=== PATIENT | female | born 1940 | race Caucasian/White ===

== ENCOUNTER 2021-11-16 17:10 | Inpatient (IN) | payer OTHER, MEDICARE ==
[2021-11-16] MEDS ORDERED: Boostrix 0.5 ML (Tdap) VIAL ONE (17:22)
[2021-11-16 17:36] LABS: #Eosinphils 0.1 thou/uL (0.0-0.7); #Lymphocytes 1.3 thou/uL (1.20-3.40); #Monocytes 0.7 thou/uL (0.11-0.59); #Neutrophils 9.4 thou/uL (1.40-6.50); %Basophils 0.1 % (0.0-1.0); %Eosinophils 0.8 % (0.0-10.0); %Monocytes 6.4 % (0.0-10.0); %Neutrophils 81.7 % (42.0-75.0); Hemoglobin 10.8 g/dL (12.0-16.0); Mean Corpuscular Hemoglobin 31.7 pg (27.0-31.0); Mean Corpuscular Volume 93.4 fL (78.0-98.0); Mean Platelet Volume 6.9 fL (7.4-10.4); Platelet Count 247 thou/uL (130-400); RBC Distribution Width 12.5 % (11.5-14.5); Red Blood Cell (RBC) Count 3.41 mill/uL (4.20-5.40); White Blood Cell (WBC) Count 11.4 thou/uL (4.8-10.8)
[2021-11-16 17:47] LABS: INR-International Normal Ratio 1.1
[2021-11-16 17:56] LABS: ALT (SGPT) 12 U/L (8-55); AST (SGOT) 19 U/L (5-34); Albumin 3.5 g/dL (3.4-4.8); Alkaline Phosphatase 68 U/L (40-110); Anion Gap 11 mmol/L (10-20); BUN (Urea Nitrogen) 13 mg/dL (9.8-20.1); Bilirubin, Total 0.7 mg/dL (0.2-1.2); Calc. Creatinine Clearance 0 mL/min (70-130); Calcium 8.3 mg/dL (7.8-10.44); Carbon Dioxide 23 mmol/L (23-31); Chloride 107 mmol/L (98-107); Globulin 2.8 g/dL (2.4-3.5); Glucose 134 mg/dL (83-110); Potassium 4.2 mmol/L (3.5-5.1); Protein, Total 6.3 g/dL (5.8-8.1); Sodium 137 mmol/L (136-145)
[2021-11-16] MEDS ORDERED: TETANUS AND DIPHTHERIA TOX/PF 0.5 ML DISP.SYRIN IM ONE (20:39)
[2021-11-16] MEDS ORDERED: Dextrose 5% in Water 1,000 ML IV PRN (20:39)
[2021-11-16] MEDS ORDERED: traMADol HCl 50 MG TAB PO PRN (20:39)
[2021-11-16] MEDS ORDERED: hydrALAZINE 20 MG/ML VIAL SLOW IVP PRN (20:39)
[2021-11-16] MEDS ORDERED: Ondansetron ODT 4 MG TAB PO PRN (20:39)
[2021-11-16] MEDS ORDERED: Ondansetron PF 4 MG/2 ML Vial IVP PRN (20:39)
[2021-11-16] MEDS ORDERED: Morphine 2 MG/ML VIAL SLOW IVP PRN (20:39)
[2021-11-16] MEDS ORDERED: Dextrose 50% Abboject 50 ML SYRINGE SLOW IVP PRN (20:39)
[2021-11-16] MEDS ORDERED: Cyclobenzaprine 10 MG TAB PO PRN (20:43)
[2021-11-16] MEDS ORDERED: Sodium Chloride 0.9% 1,000 ML IV SCH (20:45)
[2021-11-16] MEDS: Ketorolac Tromethamine 30 MG/ML VIAL IVP SCH (22:04)
[2021-11-16] MEDS: Senokot S 8.6-50 MG TAB PO SCH (22:11)
[2021-11-16] MEDS: Famotidine 20 MG TAB PO SCH (22:11)
[2021-11-16 22:44] VITALS: BMI 22.3
[2021-11-16] MEDS: traMADol HCl 50 MG TAB PO SCH (23:48)
[2021-11-16] MEDS: Acetaminophen 500 MG TAB PO SCH (23:48)
[2021-11-16 23:50] LABS: SARS-CoV-2 NAA Rapid Test Not Detected (NotDetected)
[2021-11-17] MEDS: Ketorolac Tromethamine 30 MG/ML VIAL IVP SCH ×4 (03:27→20:09)
[2021-11-17] MEDS: traMADol HCl 50 MG TAB PO SCH ×4 (05:38→23:47)
[2021-11-17] MEDS: Acetaminophen 500 MG TAB PO SCH ×4 (05:39→23:47)
[2021-11-17] MEDS: Levothyroxine Sodium 50 MCG TAB PO SCH (05:40)
[2021-11-17 07:01] LABS: #Eosinphils 0.1 thou/uL (0.0-0.7); #Lymphocytes 0.9 thou/uL (1.20-3.40); #Monocytes 0.6 thou/uL (0.11-0.59); #Neutrophils 4.1 thou/uL (1.40-6.50); %Basophils 0.5 % (0.0-1.0); %Eosinophils 1.8 % (0.0-10.0); %Lymphocytes 16.1 % (21.0-51.0); %Monocytes 10.5 % (0.0-10.0); %Neutrophils 71.1 % (42.0-75.0); Hemoglobin 9.2 g/dL (12.0-16.0); Mean Corpuscular HGB CONC 34.5 g/dL (32.0-36.0); Mean Corpuscular Hemoglobin 32.5 pg (27.0-31.0); Mean Corpuscular Volume 94.1 fL (78.0-98.0); Mean Platelet Volume 7.5 fL (7.4-10.4); Platelet Count 200 thou/uL (130-400); RBC Distribution Width 12.5 % (11.5-14.5); Red Blood Cell (RBC) Count 2.84 mill/uL (4.20-5.40); White Blood Cell (WBC) Count 5.7 thou/uL (4.8-10.8)
[2021-11-17 07:21] LABS: Phosphorus 2.9 mg/dL (2.3-4.7)
[2021-11-17 07:23] LABS: Anion Gap 11 mmol/L (10-20); BUN (Urea Nitrogen) 15 mg/dL (9.8-20.1); Calc. Creatinine Clearance 43 mL/min (70-130); Carbon Dioxide 23 mmol/L (23-31); Chloride 108 mmol/L (98-107); Glucose 122 mg/dL (83-110); Potassium 4.5 mmol/L (3.5-5.1); Sodium 137 mmol/L (136-145)
[2021-11-17] MEDS: Senokot S 8.6-50 MG TAB PO SCH ×2 (07:33→20:08)
[2021-11-17] MEDS: Polyethylene Glycol 3350 17 GM Packet PO SCH (07:33)
[2021-11-17] MEDS: Famotidine 20 MG TAB PO SCH ×2 (07:33→20:07)
[2021-11-17] MEDS ORDERED: Sodium Phosphate 30 MMOL in Sodium Chloride 0.9% 250 ML 250 ML IVPB SCH (07:45)
[2021-11-17] MEDS ORDERED: CEFAZOLIN 2 GM in Sodium Chloride 0.9% 100 ML IVPB SCH (08:00)
[2021-11-17] MEDS ORDERED: fentaNYL Citrate/PF 100 MCG/2 ML SYRINGE ONE (13:34)
[2021-11-17] MEDS ORDERED: Phenylephrine 10 MG/ML VIAL ONE (13:35)
[2021-11-17] MEDS ORDERED: CEFAZOLIN 2 GM VIAL ONE (13:38)
[2021-11-17] MEDS ORDERED: Sodium Chloride 0.9% 100 ML ONE (13:38)
[2021-11-17] MEDS ORDERED: PROPOFOL 200 MG/20 ML VIAL ONE (14:11)
[2021-11-17] MEDS ORDERED: Ondansetron PF 4 MG/2 ML Vial ONE (14:11)
[2021-11-17] MEDS ORDERED: Glycopyrrolate 0.2 MG/ML 5 ML SYRINGE ONE (14:11)
[2021-11-17] MEDS ORDERED: Rocuronium Bromide 10 MG/ML (10ML VIAL) ONE (14:11)
[2021-11-17] MEDS ORDERED: Dexamethasone 20 MG/5 ML VIAL ONE (14:11)
[2021-11-17] MEDS ORDERED: Promethazine HCl 25 MG/ML VIAL IM PRN (15:30)
[2021-11-17] MEDS ORDERED: Promethazine HCl 25 MG/ML VIAL IVPB PRN (15:30)
[2021-11-17] MEDS ORDERED: Ondansetron HCl/PF 4 MG/2 ML Vial IVP PRN (15:30)
[2021-11-17] MEDS: Atorvastatin Calcium 40 MG TAB PO SCH (20:07)
[2021-11-17] MEDS: CEFAZOLIN 2 GM in Sodium Chloride 0.9% 100 ML IVPB SCH (22:15)
[2021-11-18] MEDS: Ketorolac Tromethamine 30 MG/ML VIAL IVP SCH (02:39)
[2021-11-18] MEDS: Levothyroxine Sodium 50 MCG TAB PO SCH (05:11)
[2021-11-18] MEDS: Acetaminophen 500 MG TAB PO SCH ×4 (05:11→23:51)
[2021-11-18] MEDS: traMADol HCl 50 MG TAB PO SCH ×4 (05:11→23:52)
[2021-11-18] MEDS: CEFAZOLIN 2 GM in Sodium Chloride 0.9% 100 ML IVPB SCH (05:12)
[2021-11-18 05:51] LABS: #Basophils 0.1 thou/uL (0.0-0.2); #Lymphocytes 0.9 thou/uL (1.20-3.40); #Monocytes 0.5 thou/uL (0.11-0.59); #Neutrophils 7.1 thou/uL (1.40-6.50); %Basophils 1.1 % (0.0-1.0); %Eosinophils 0.2 % (0.0-10.0); %Lymphocytes 10.1 % (21.0-51.0); %Neutrophils 82.6 % (42.0-75.0); Hemoglobin 8.1 g/dL (12.0-16.0); Mean Corpuscular HGB CONC 33.2 g/dL (32.0-36.0); Mean Corpuscular Hemoglobin 31.4 pg (27.0-31.0); Mean Corpuscular Volume 94.7 fL (78.0-98.0); Mean Platelet Volume 7.2 fL (7.4-10.4); Platelet Count 188 thou/uL (130-400); RBC Distribution Width 12.7 % (11.5-14.5); Red Blood Cell (RBC) Count 2.56 mill/uL (4.20-5.40); White Blood Cell (WBC) Count 8.6 thou/uL (4.8-10.8)
[2021-11-18 06:16] LABS: Anion Gap 12 mmol/L (10-20); BUN (Urea Nitrogen) 12 mg/dL (9.8-20.1); Calc. Creatinine Clearance 41 mL/min (70-130); Calcium 7.6 mg/dL (7.8-10.44); Carbon Dioxide 19 mmol/L (23-31); Glucose 124 mg/dL (83-110); Magnesium 1.9 mg/dL (1.6-2.6); Phosphorus 3.1 mg/dL (2.3-4.7); Potassium 4.3 mmol/L (3.5-5.1); Sodium 135 mmol/L (136-145)
[2021-11-18 06:18] LABS: Chloride 108 mmol/L (98-107)
[2021-11-18] MEDS ORDERED: Ibuprofen 800 MG TAB PO PRN (08:13)
[2021-11-18] MEDS ORDERED: Ibuprofen 200 MG TAB PO PRN (08:20)
[2021-11-18] MEDS: Enoxaparin Sodium 40 MG/0.4 ML SYRINGE SC SCH (08:56)
[2021-11-18] MEDS: Polyethylene Glycol 3350 17 GM Packet PO SCH (08:59)
[2021-11-18] MEDS: Famotidine 20 MG TAB PO SCH (09:00)
[2021-11-18] MEDS ORDERED: PHOS-NAK 1 PKT PACK PO SCH (09:00)
[2021-11-18] MEDS: Senokot S 8.6-50 MG TAB PO SCH ×2 (09:00→20:23)
[2021-11-18] MEDS: Atorvastatin Calcium 40 MG TAB PO SCH (20:23)
[2021-11-19] MEDS: Acetaminophen 500 MG TAB PO SCH ×4 (05:22→23:50)
[2021-11-19] MEDS: Levothyroxine Sodium 50 MCG TAB PO SCH (05:22)
[2021-11-19] MEDS: traMADol HCl 50 MG TAB PO SCH ×3 (05:22→17:57)
[2021-11-19 06:04] LABS: Anion Gap 11 mmol/L (10-20); BUN (Urea Nitrogen) 15 mg/dL (9.8-20.1); Calc. Creatinine Clearance 50 mL/min (70-130); Calcium 7.6 mg/dL (7.8-10.44); Carbon Dioxide 24 mmol/L (23-31); Chloride 109 mmol/L (98-107); Glucose 101 mg/dL (83-110); Magnesium 2.1 mg/dL (1.6-2.6); Phosphorus 1.8 mg/dL (2.3-4.7); Potassium 3.8 mmol/L (3.5-5.1); Sodium 140 mmol/L (136-145)
[2021-11-19 06:07] LABS: #Eosinphils 0.3 thou/uL (0.0-0.7); #Lymphocytes 1.5 thou/uL (1.20-3.40); #Monocytes 0.6 thou/uL (0.11-0.59); #Neutrophils 3.2 thou/uL (1.40-6.50); %Basophils 0.3 % (0.0-1.0); %Eosinophils 5.2 % (0.0-10.0); %Lymphocytes 27.3 % (21.0-51.0); %Neutrophils 57.2 % (42.0-75.0); Hemoglobin 6.5 g/dL (12.0-16.0); Mean Corpuscular HGB CONC 34.1 g/dL (32.0-36.0); Mean Corpuscular Hemoglobin 32.2 pg (27.0-31.0); Mean Corpuscular Volume 94.6 fL (78.0-98.0); Mean Platelet Volume 7.2 fL (7.4-10.4); Platelet Count 158 thou/uL (130-400); Platelet Morphology Comment Appears Adequate; RBC Distribution Width 12.8 % (11.5-14.5); Red Blood Cell (RBC) Count 2.01 mill/uL (4.20-5.40); White Blood Cell (WBC) Count 5.6 thou/uL (4.8-10.8)
[2021-11-19] MEDS ORDERED: Potassium Phosphate 30 MMOL in Sodium Chloride 0.9% 250 ML 250 ML IVPB SCH (09:15)
[2021-11-19] MEDS: Senokot S 8.6-50 MG TAB PO SCH ×2 (09:33→20:50)
[2021-11-19] MEDS: Enoxaparin Sodium 40 MG/0.4 ML SYRINGE SC SCH (09:33)
[2021-11-19] MEDS: Polyethylene Glycol 3350 17 GM Packet PO SCH (09:33)
[2021-11-19] MEDS: Famotidine 20 MG TAB PO SCH (09:33)
[2021-11-19] MEDS: Ferrous Sulfate 325 MG TAB PO SCH (17:57)
[2021-11-19] MEDS: Atorvastatin Calcium 40 MG TAB PO SCH (20:50)
[2021-11-19] MEDS: Ascorbic Acid 500 mg Chewable Tablet PO SCH (20:51)
[2021-11-20] MEDS: traMADol HCl 50 MG TAB PO SCH ×4 (01:51→19:07)
[2021-11-20] MEDS: Acetaminophen 500 MG TAB PO SCH ×3 (05:39→19:06)
[2021-11-20] MEDS: Levothyroxine Sodium 50 MCG TAB PO SCH (05:39)
[2021-11-20 06:25] LABS: #Eosinphils 0.4 thou/uL (0.0-0.7); #Lymphocytes 1.4 thou/uL (1.20-3.40); #Monocytes 0.4 thou/uL (0.11-0.59); %Basophils 0.8 % (0.0-1.0); %Eosinophils 6.8 % (0.0-10.0); %Lymphocytes 26.7 % (21.0-51.0); %Monocytes 7.6 % (0.0-10.0); %Neutrophils 58.1 % (42.0-75.0); Hemoglobin 7.9 g/dL (12.0-16.0); Mean Corpuscular HGB CONC 34.4 g/dL (32.0-36.0); Mean Corpuscular Hemoglobin 32.4 pg (27.0-31.0); Mean Corpuscular Volume 94.2 fL (78.0-98.0); Platelet Count 193 thou/uL (130-400); Red Blood Cell (RBC) Count 2.44 mill/uL (4.20-5.40); White Blood Cell (WBC) Count 5.2 thou/uL (4.8-10.8)
[2021-11-20 06:44] LABS: Anion Gap 9 mmol/L (10-20); BUN (Urea Nitrogen) 12 mg/dL (9.8-20.1); Calc. Creatinine Clearance 58 mL/min (70-130); Calcium 8.1 mg/dL (7.8-10.44); Carbon Dioxide 25 mmol/L (23-31); Chloride 107 mmol/L (98-107); Glucose 90 mg/dL (83-110); Potassium 3.8 mmol/L (3.5-5.1); Sodium 137 mmol/L (136-145)
[2021-11-20 06:51] LABS: Phosphorus 1.9 mg/dL (2.3-4.7)
[2021-11-20] MEDS ORDERED: Potassium Phosphate 30 MMOL in Sodium Chloride 0.9% 250 ML 250 ML IVPB SCH (08:00)
[2021-11-20] MEDS: Polyethylene Glycol 3350 17 GM Packet PO SCH (08:31)
[2021-11-20] MEDS: Senokot S 8.6-50 MG TAB PO SCH ×2 (08:32→20:20)
[2021-11-20] MEDS: Enoxaparin Sodium 40 MG/0.4 ML SYRINGE SC SCH (08:32)
[2021-11-20] MEDS: Ferrous Sulfate 325 MG TAB PO SCH ×2 (08:32→19:08)
[2021-11-20] MEDS: Famotidine 20 MG TAB PO SCH (08:32)
[2021-11-20] MEDS: Ascorbic Acid 500 mg Chewable Tablet PO SCH ×2 (08:32→20:20)
[2021-11-20] MEDS: Atorvastatin Calcium 40 MG TAB PO SCH (20:16)
[2021-11-20 21:52] VITALS: BP 158/84; TEMP 98.6
== END 2021-11-20 21:00 | DRG 481 ==
LOC: ERS 17:10 → SURG A 19:49
PROVIDERS: ADMIT Surgery; ATTEND Surgery
PROC: 0QS806Z Reposition Right Femoral Shaft with Intramedullary Internal Fixation Device, Open Approach (ICD-10-PCS; principal; 2021-11-17)
PROC: 30233N1 Transfusion of Nonautologous Red Blood Cells into Peripheral Vein, Percutaneous Approach (ICD-10-PCS; 2021-11-19)
DX: S72.351A Displaced comminuted fracture of shaft of right femur, initial encounter for closed fracture (principal); D62 Acute posthemorrhagic anemia; Z23 Encounter for immunization; Z20.822 Contact with and (suspected) exposure to COVID-19; E03.9 Hypothyroidism, unspecified; M81.0 Age-related osteoporosis without current pathological fracture; E78.5 Hyperlipidemia, unspecified; E83.39 Other disorders of phosphorus metabolism; V48.4XXA Person boarding or alighting a car injured in noncollision transport accident, initial encounter; Y92.481 Parking lot as the place of occurrence of the external cause; Z90.49 Acquired absence of other specified parts of digestive tract; Z79.899 Other long term (current) drug therapy; Z79.82 Long term (current) use of aspirin; Z79.890 Hormone replacement therapy
CPT/HCPCS: 36415; 36430; 70450; 71045; 72125; 76000; 80048; 80053; 83735; 84100; 85025; 85610; 85730; 86850; 86900; 86901; 90471; 90715; 93005; C1713; G0390; J0690; J1100; J1650; J1885; J2370; J2405; J2704; J3490; J7030; J7050; P9016; U0002

== ENCOUNTER 2022-01-11 13:22 | Outpatient (CLI) | payer MEDICARE | END 2022-01-11 13:23 | disposition home or self-care (01) | LOC: LABBT 13:22 | PROVIDERS: ATTEND Orthopaedic Surgery | DX: Z20.822 Contact with and (suspected) exposure to COVID-19 (principal) | CPT/HCPCS: 87811 ==

== ENCOUNTER 2022-01-13 10:20 | Day surgery (SDC) | payer MEDICARE ==
[2022-01-11 15:15] VITALS: BMI 23.0
[2022-01-13] MEDS ORDERED: Sodium Chloride 0.9% 100 ML ONE (12:18)
[2022-01-13] MEDS ORDERED: CEFAZOLIN 2 GM VIAL ONE (12:18)
[2022-01-13] MEDS ORDERED: fentaNYL Citrate/PF 100 MCG/2 ML SYRINGE ONE (12:21)
[2022-01-13] MEDS ORDERED: Ondansetron PF 4 MG/2 ML Vial ONE (12:36)
[2022-01-13] MEDS ORDERED: PROPOFOL 200 MG/20 ML VIAL ONE (12:36)
[2022-01-13] MEDS ORDERED: Dexamethasone 20 MG/5 ML VIAL ONE (12:36)
[2022-01-13] MEDS ORDERED: Lidocaine 1% PF 5 ML VIAL ONE (12:36)
[2022-01-13] MEDS ORDERED: Fentanyl 100 MCG/2 ML VIAL ONE ×3 (13:33→14:09)
[2022-01-13] MEDS ORDERED: HYDROcodone/Acetaminophen 5/325 mg Tablet ONE (14:50)
== END 2022-01-13 15:54 | disposition home or self-care (01) ==
LOC: SDC 10:20
PROVIDERS: ATTEND Orthopaedic Surgery
PROC: 0J9N0ZZ Drainage of Right Lower Leg Subcutaneous Tissue and Fascia, Open Approach (ICD-10-PCS; principal; 2022-01-13)
DX: M96.842 Postprocedural seroma of a musculoskeletal structure following a musculoskeletal system procedure (principal); M81.0 Age-related osteoporosis without current pathological fracture; Z86.73 Personal history of transient ischemic attack (TIA), and cerebral infarction without residual deficits
CPT/HCPCS: J0690; J1100; J2405; J2704; J3010; J3490